=== PATIENT | male | born 1995 | race African-American/Black ===

== ENCOUNTER 2017-05-08 11:49 | Emergency (ER) | payer OTHER ==
[~2017-05-08] VITALS: Ht 167.6 cm; Wt 54.4 kg
[2017-05-08 13:34] LABS: HEMATOCRIT 50.6 % (42.0-52.0); MCH 30.3 pg (26.0-34.0); MCHC 33.5 g/dL (28.0-37.0); MCV 90.4 fL (80.0-100.0); PLATELET COUNT 240 thou/uL (150-400); RBC 5.59 mil/uL (4.50-6.00); RDW 13.4 % (10.5-14.5); WBC 4.5 thou/uL (4.0-11.0)
[2017-05-08 13:47] LABS: ANION GAP 11 mmol/L (7-16); BUN 11 mg/dL (7-18); CALCIUM 10.8 mg/dL (8.5-10.1); CHLORIDE 101 mmol/L (98-107); CO2 26 mmol/L (21-32); CREATININE 0.9 mg/dL (0.7-1.3); GLUCOSE 96 mg/dL (74-106); POTASSIUM 3.6 mmol/L (3.5-5.1); SODIUM 138 mmol/L (136-145)
[2017-05-08 13:52] LABS: ALBUMIN 4.5 g/dL (3.4-5.0); DIRECT BILIRUBIN < 0.1 mg/dL (<0.1-0.3); LIPASE 77 U/L (73-393); SGOT 24 U/L (15-37); SGPT 17 U/L (30-65); TOTAL BILIRUBIN 0.4 mg/dL (<0.1-1.0); TOTAL PROTEIN 8.9 g/dL (6.4-8.2)
[2017-05-08] MEDS ORDERED: PHENERGAN 25 MG25 M1 PO (14:11)
[2017-05-08] MEDS ORDERED: PROMS25 WY RECTAL (14:11)
[2017-05-08 14:50] LABS: ABSOLUTE NEUTROPHILS 2.3 thou/uL (1.4-8.2)
== END 2017-05-08 15:09 | disposition home or self-care (01) ==
LOC: ER 11:49
PROVIDERS: Emergency Medicine
DX: R11.2 Nausea with vomiting, unspecified (principal); F15.10 Other stimulant abuse, uncomplicated